=== PATIENT | female | born 2000 | race Caucasian/White ===

== ENCOUNTER → 2021-05-10 15:58 | Outpatient (CLI) | payer OTHER, SELFPAY ==
[2021-05-10 16:52] LABS: Absolute Lymphocyte Count 1.16 X10^3/uL (0.83-4.51); Absolute Neutrophil Count 4.6 X10^3/uL (2.0-7.7); Basophil# 0.03 X10^3/uL; Basophil% 0.5 % (0-1); Eosinophil# 0.08 X10^3/uL; Eosinophils% 1.3 % (0-5); Hematocrit 38.7 % (37-47); Hemoglobin 12.8 g/dL (12.0-15.0); Lymphocyte # 1.16 X10^3/ul (0.83-4.51); Lymphocyte % 18.3 % (19-41); Mean Corp Hgb Conc 33.1 g/dL (32-36); Mean Corpuscular Volume 87.8 fL (81-99); Mean Platelet Vol. 11.1 fl (6.2-12.0); Monocyte% 7.9 % (0-10); NRBC Flagged by Analyzer 0 % (0-5); Neutrophil # 4.56 X10^3/uL (2.7-7.7); Neutrophil % 71.7 % (47-70); Platelet Count 211 K/mm3 (150-450); RBC Distribution Width CV 12.5 % (11.6-14.6); RBC Distribution Width SD 40.5 fl (35.1-43.9); Red Blood Count 4.41 M/mm3 (4.2-5.4); White Blood Count 6.4 K/mm3 (4.4-11.0)
[2021-05-10 16:57] LABS: Color, Urine Yellow (Yellow); Glucose, Dipstick Normal (Normal); Ketone-Dipstick Negative (Negative); Leukocyte Esterase-Dipstick 25 /ul (Negative); Nitrite-Dipstick Negative (Negative); Occult Blood-Urine Negative /ul (Negative); Protein-Dipstick Negative (Negative); Urine Bilirubin Dipstick Negative (Negative); Urine Clarity Clear (Clear); Urine Urobilinogen Normal (Normal)
[2021-05-10 17:42] LABS: Thyroid Stim Hormone (TSH) 0.99 uIU/mL (0.358-3.74)
[2021-05-11 09:28] LABS: HIV - WCH Non-Reactive (Nonreactive); Hepatitis B Surface Antigen Non-Reactive (Nonreactive); Hepatitis C Antibody Non-Reactive (Nonreactive); Rubella IgG Reactive (Nonreactive); Syphilis Antibodies Non-reactive
[2021-05-13 03:06] LABS: Chlamydia By Nucleic Acid AMP Negative (Negative)
[2021-05-13 10:09] LABS: Gonococcus By Nucleic Acid AMP Negative (Negative)
[2021-05-15 14:34] LABS: HPV Reflexed? NOT INDICATED
== END ==
PROVIDERS: Visit Provider Obstetrics & Gynecology
DX: Z34.81 Encounter for supervision of other normal pregnancy, first trimester (principal); Z12.4 Encounter for screening for malignant neoplasm of cervix; Z11.3 Encounter for screening for infections with a predominantly sexual mode of transmission
CPT/HCPCS: 36415; 81002; 84443; 85025; 86703; 86762; 86780; 86803; 87340; 87491; 87591; 88175; G0145

== ENCOUNTER → 2021-11-16 | Outpatient (CLI) | payer SELFPAY | END | disposition home or self-care (01) | LOC: LABSPEC 16:01 | PROVIDERS: PCP Family Medicine; Visit Provider Obstetrics & Gynecology | DX: Z36.85 Encounter for antenatal screening for Streptococcus B (principal) | CPT/HCPCS: 87081 ==

== ENCOUNTER 2021-12-05 07:00 | Inpatient (IN) | payer SELFPAY, OTHER ==
[2021-12-05] VITALS (59 sets, daily range): BP systolic 94–150; BP diastolic 54–84; PULSE 77–137; RESP 18; TEMP 35.5–36.7; O2SAT 88–100; BMI 28.5
[2021-12-05 08:29] LABS: Absolute Lymphocyte Count 0.84 X10^3/uL (0.83-4.51); Absolute Neutrophil Count 8.2 X10^3/uL (2.0-7.7); Basophil# 0.02 X10^3/uL; Basophil% 0.2 % (0-1); Eosinophil# 0.02 X10^3/uL; Eosinophils% 0.2 % (0-5); Hematocrit 36.4 % (37-47); Hemoglobin 12.4 g/dL (12.0-15.0); Lymphocyte # 0.84 X10^3/ul (0.83-4.51); Lymphocyte % 8.6 % (19-41); Mean Corp Hgb Conc 34.1 g/dL (32-36); Mean Corpuscular Hgb 30.2 pg (27.0-32.0); Mean Corpuscular Volume 88.8 fL (81-99); Mean Platelet Vol. 11.4 fl (6.2-12.0); Monocyte# 0.59 X10^3/uL; NRBC Flagged by Analyzer 0 % (0-5); Neutrophil # 8.24 X10^3/uL (2.7-7.7); Neutrophil % 84.4 % (47-70); Platelet Count 147 K/mm3 (150-450); RBC Distribution Width SD 42.3 fl (35.1-43.9); White Blood Count 9.8 K/mm3 (4.4-11.0)
--- NOTE | 2021-12-05 08:32 | PCM.HP.BLA ---
History and Physical Date of Admission: 12/05/21 HPI 21-year-old at 39/5 weeks, ANGE 12/07/2021 by 9-week ultrasound, admitted in labor. Reports regular contractions. Denies leaking of fluid, vaginal bleeding. Reports movement. Denies headache, vision changes, chest pain or shortness of breath, nausea or vomiting, diarrhea constipation, fevers or chills. complicated by: Possible abnormal head views that was found to be normal by M Medical history: Denies Surgical history: Denies Allergies: No known known drug allergies Social history: Denies tobacco, alcohol, drug use Medications: vitamin Family history: Hypertension, otherwise noncontributory Review of systems: Negative otherwise stated as above Physical Exam Vital signs: blood pressure 115/74 // Pulse 93 // Temp 97.4F // O2 sat 99% RA General: No acute distress HEENT: Normocephalic/atraumatic, PERRLA Cardiorespiratory: No increased effort, heart rate regular Abdomen: Soft, nontender, gravid Extremities: Minimal edema Musculoskeletal: Muscle strength 5 out of 5 throughout all extremities Neurologic: Cranial nerves II through XII grossly intact Cervical exam: 4 to 5 cm per RN heart rate: 140/mod new/+accel/no decel [place]: irregular panel: A positive HepatitisB /hepatitis C negative/negative HIV negative Syphilis nonreactive Gonorrhea/chlamydia negative GBS -11/16 CBC today showing mild gestational leukocytopenia with platelets of 147 Assessment/plan: 21-year-old at 39/5 weeks, ANGE 12/07/2021 by 9-week ultrasound, admitted in labor. -Admit to labor and delivery, routine orders -Does not desire epidural for pain management -GBS negative Assessment & Plan Assessment/Plan (1) Active labor at term:
[2021-12-05] MEDS: Lactated Ringers 500 ML 999 ML IV (10:45)
[2021-12-05] MEDS: fentaNYL-bupivacaine (epidural) 100 ML BAG EPIDURAL ×2 (11:15→14:52)
[2021-12-05] MEDS: Lactated Ringers 1,000 ML 200 ML IV ×2 (11:15→16:07)
[2021-12-05] MEDS: Oxytocin 30 units/NS 500 ml 30 UNITS/500 ML IV.SOLN 334 UNITS IV (17:00)
--- NOTE | 2021-12-05 17:11 | EX.PCM.OBRPT ---
Maternal Data Information Final ANGE: 12/07/21 Gestational age: 39w5d Vaginal Delivery Maternal Presentation Maternal Presentation: Active Labor Operative Information Date of Procedure: 12/05/21 Pre-Operative Diagnosis: IUP Post-Operative Diagnosis: IUP Surgery / Procedure Performed: Spontaneous Vaginal Delivery Type of Anesthesia: Epidural Estimated Blood Loss: 250 cc Findings Description of Procedure: Spontaneous vaginal delivery of a viable male with Apgars of 8/9 from an occiput anterior presentation with clear amniotic fluid and normal three-vessel placenta. No episiotomy. Second-degree midline laceration repaired with 3-0 Rapide suture under epidural. Sponges okay. Delivery physician: Toby Barry MD. Presentation: Vertex Amniotic Membrane Rupture Type: Spontaneous Amniotic Fluid Description: Clear Placental Delivery Description: Spontaneous Placenta Disposition: [facility] Cord Vessel Description: 3 Vessels Cord Entanglement: None Infant A Gender: Male (1 minute): 8 (5 minute): 9 Delayed Cord Clamping: Yes Post Vaginal Delivery Medications Given After Delivery: IV Pitocin Episiotomy Description: None Laceration: Midline and 2nd degree Complication Complications: None
[2021-12-05] MEDS: 0.9% Saline Lock 10 ML Syringe IV (19:52)
[2021-12-05] MEDS: Acetaminophen 500 MG Tablet 1000 MG PO (22:54)
[2021-12-06 00:35] VITALS: BP 114/72; PULSE 103; RESP 18; TEMP 36.9
[2021-12-06 04:00] VITALS: BP 102/66; PULSE 92; RESP 18; TEMP 37.1
[2021-12-06] MEDS: Ibuprofen 600 MG Tablet PO (06:38)
--- NOTE | 2021-12-06 07:41 | NURSING ---
This RN reviewed all charting by Jessica BARRON, agrees with all charting throughout shift.
--- NOTE | 2021-12-06 08:44 | PCM.PN.OB ---
Subjective Subjective Patient without complaints. Breast-feeding going well. Minimal vaginal bleeding reported. May want to go home later today if baby is able to go but has not decided yet. Objective Data Objective Data Vital Signs: Vital Signs Temp Pulse Resp BP Pulse Ox 98.7 F 92 18 102/66 99 12/06/21 04:00 12/06/21 04:00 12/06/21 04:00 12/06/21 04:00 12/05/21 20:47 Oxygen Delivery Method Room Air Weight: 156 lb 4.924 oz Body Mass Index (BMI) 28.5 Intake & Output: Intake and Output for Last 24 Hours 12/04/21 12/05/21 12/06/21 23:59 23:59 23:59 Intake Total 2450.00 / 2450.00 Output Total 550 / 550 Balance 1900.00 / 1900.00 Lab / Micro Data Result Diagrams: 12/05/21 08:05 Labs: Laboratory Results - last 24 hr 12/05/21 08:05: Blood Type A POSITIVE, Antibody Screen NEGATIVE Micro: Microbiology 12/05/21 08:05 Nasal Secretion SARS-CoV-2 Antigen (Rapid) - Final Assessment & Plan (1) Spontaneous vaginal delivery: PLAN: Doing well post day #1 status post routine spontaneous vaginal delivery. Will discharge to home with routine instructions given.
--- NOTE | 2021-12-06 08:45 | PCM.DC ---
Discharge Instructions Diet Discharge Diet: No restrictions Activity Discharge Activity: May Drive (In 1 to 2 days if not taking narcotic pain medication), May Shower and May Take a Tub Bath May resume sexual activity in: 4-6 weeks Additional Activity Instructions:: Nothing in the vagina for 4-6 weeks. You may return to work/school in 6 weeks. Dressing / Incision Call your doctor if you observe: Fever of 101 or Higher, Inability to urinate, Inability to have a bowel movement and Using more than 1 pad per hour Follow Up Care Please Follow Up With: Toby Barry MD When: Call [phone] to make an appointment with your doctor in 6 weeks. Test Results: Test results from this visit will be discussed in further detail at your follow-up appointment, if applicable. Discharge Plan Admission Admit Date/Time: 12/05/21 07:00 Primary Reason for Your Visit: Vaginal Delivery Attending Provider: Toby Barry Primary Care Provider: Rico Moody Discharge Orders/Prescriptions Prescriptions: No Action Prena-Tab 65 mg iron- 1 mg Tablet 1 tab PO DAILY RF: 0 Referrals / Follow Up: Rico Moody MD [Primary Care Provider] - Disposition Disposition (needs filled in before D/C Order can be placed): Home, Self Care
[2021-12-06 09:19] VITALS: BP 101/61; PULSE 88; RESP 12; TEMP 36.6
[2021-12-06 12:13] VITALS: BP 108/67; PULSE 82; RESP 16; TEMP 36.6
[2021-12-06 16:38] VITALS: BP 115/73; PULSE 101; RESP 16; TEMP 36.6
[2021-12-06] MEDS: Acetaminophen 500 MG Tablet 1000 MG PO (18:11)
--- NOTE | 2021-12-06 18:23 | NURSING ---
This RN reviewed and agrees with all charting by SN Liz. This RN present at bedside for all medication administrations.
[2021-12-06 21:10] VITALS: BP 101/68; PULSE 94; RESP 18; TEMP 36.4
[2021-12-07 02:20] VITALS: BP 107/69; PULSE 98; RESP 16; TEMP 36.4
--- NOTE | 2021-12-07 05:07 | NURSING ---
All charting by SN Lavelle reviewed by this RN preceptor.
--- NOTE | 2021-12-07 07:26 | PCM.PN.OB ---
Subjective Subjective day 2. Lochia minimal. Breast-feeding going better. Objective Data Objective Data Vital Signs: Vital Signs Temp Pulse Resp BP Pulse Ox 97.6 F L 98 16 107/69 99 12/07/21 02:20 12/07/21 02:20 12/07/21 02:20 12/07/21 02:20 12/05/21 20:47 Oxygen Delivery Method Room Air Weight: 70.9 kg Body Mass Index (BMI) 28.5 Intake & Output: Intake and Output for Last 24 Hours 12/05/21 12/06/21 12/07/21 23:59 23:59 23:59 Intake Total 2450.00 / 2450.00 Output Total 550 / 550 Balance 1900.00 / 1900.00 Lab / Micro Data Result Diagrams: 12/05/21 08:05 Micro: Microbiology 12/05/21 08:05 Nasal Secretion SARS-CoV-2 Antigen (Rapid) - Final Physical Exam Const alert, oriented x3 and no apparent distress HEENT normocephalic Head and Scalp: atraumatic Neck full ROM Resp normal respiratory effort Cardio regular rate GI normal to inspection, nondistended, normoactive bowel sounds GI Narrative: Uterus 2 cm below umbilicus Back/Spine normal ROM Extremity normal to inspection Extremity Narrative: Minimal pedal edema Neuro no focal motor deficits and no sensory deficits noted Psych mental status grossly normal and affect normal Assessment & Plan (1) Spontaneous vaginal delivery: PLAN: day 2. Status post . Breast-feeding improved. Home today. 2-week telehealth visit and 6-week visit.
[2021-12-07 08:13] VITALS: BP 105/60; PULSE 101; RESP 18; TEMP 36.4
--- NOTE | 2021-12-13 14:00 | NURSING ---
Mother had visit with Krystyna , she is doing well, , had good experience with Shanika felt she was supportive.
== END 2021-12-07 11:00 | disposition home or self-care (01) | DRG 807 ==
LOC: WPOUT 07:09 → WP 07:09
PROVIDERS: Admitting Provider Obstetrics & Gynecology; PCP Family Medicine; Referring Provider Student in an Organized Health Care Education/Training Program; Visit Provider Obstetrics & Gynecology
DX: O70.1 Second degree perineal laceration during delivery (principal); Z37.0 Single live birth; Z3A.39 39 weeks gestation of pregnancy
CPT/HCPCS: 59025; 59050; 85025; 86850; 86900; 86901; 87426; 99218; J7120; A4216; G0378